=== PATIENT | female | born 1945 | race Two or more races ===

== ENCOUNTER 2017-12-01 08:09 | Outpatient (CLI) | payer OTHER | END 2017-12-01 09:47 | disposition home or self-care (01) | LOC: RAD 08:09 | DX: R06.09 Other forms of dyspnea (principal) ==

== ENCOUNTER 2017-12-24 09:49 | Emergency (ER) | payer OTHER ==
[~2017-12-24] VITALS: Ht 165.1 cm; Wt 77.1 kg
[2017-12-24] MEDS ORDERED: LIPITOR20 MG (10:21)
[2017-12-24] MEDS ORDERED: TOPROL XL50 M1 (10:21)
[2017-12-24] MEDS ORDERED: OMEGA 3 500 SO1 EACH (10:22)
[2017-12-24] MEDS ORDERED: DIOVAN40 MG (10:22)
[2017-12-24] MEDS ORDERED: LITHIUM CARBON300 MG (10:22)
== END 2017-12-24 15:40 | disposition home or self-care (01) ==
LOC: ER 09:49
DX: K52.89 Other specified noninfective gastroenteritis and colitis (principal)

== ENCOUNTER → 2018-01-01 08:30 | Outpatient (CLI) | payer OTHER ==
[~2018-01-01 08:30] MED LIST: DIOVAN40 MG; LIPITOR20 MG; LITHIUM CARBON300 MG; OMEGA 3 500 SO1 EACH; TOPROL XL50 M1
== END | disposition home or self-care (01) ==
LOC: LAB 08:30
DX: K52.1 Toxic gastroenteritis and colitis (principal)

== ENCOUNTER → 2018-01-02 | Emergency (ER) | payer OTHER ==
[~2018-01-02] VITALS: Ht 165.1 cm; Wt 76.2 kg
== END | disposition left against medical advice (07) ==
LOC: ER 17:52
DX: Z53.20 Procedure and treatment not carried out because of patient's decision for unspecified reasons (principal)

== ENCOUNTER 2018-03-04 12:07 | Emergency (ER) | payer OTHER ==
[~2018-03-04] VITALS: Ht 165.1 cm; Wt 76.2 kg
== END 2018-03-04 15:00 | disposition home or self-care (01) ==
LOC: ER 12:07
DX: M43.6 Torticollis (principal)

== ENCOUNTER 2018-05-01 08:03 | Emergency (ER) | payer OTHER ==
[~2018-05-01] VITALS: Ht 165.1 cm; Wt 76.2 kg
[2018-05-01] MEDS ORDERED: WELLBUTRIN XL300 MG PO (08:15)
== END 2018-05-01 11:42 | disposition home or self-care (01) ==
LOC: ER 08:03
DX: S50.12XA Contusion of left forearm, initial encounter (principal); S80.02XA Contusion of left knee, initial encounter; S80.01XA Contusion of right knee, initial encounter; W18.39XA Other fall on same level, initial encounter; Y93.89 Activity, other specified; Y92.89 Other specified places as the place of occurrence of the external cause; Y99.8 Other external cause status

== ENCOUNTER 2018-05-20 08:42 | Outpatient (CLI) | payer OTHER ==
[~2018-05-20 08:42] MED LIST changes: +WELLBUTRIN XL300 MG PO
== END 2018-05-20 08:49 | disposition home or self-care (01) ==
LOC: SONOGRAMA 08:42
DX: M77.12 Lateral epicondylitis, left elbow (principal)

== ENCOUNTER 2018-05-21 08:19 | Outpatient (CLI) | payer OTHER | END 2018-05-21 08:28 | disposition home or self-care (01) | LOC: TOM 08:19 | DX: S50.02XA Contusion of left elbow, initial encounter (principal) ==

== ENCOUNTER 2018-06-23 13:47 | Outpatient (CLI) | payer OTHER | END 2018-06-23 17:00 | disposition home or self-care (01) | LOC: MRI 13:47 | DX: M54.12 Radiculopathy, cervical region (principal); R26.2 Difficulty in walking, not elsewhere classified | CPT/HCPCS: 72141 ==

== ENCOUNTER 2018-10-29 10:49 | Emergency (ER) | payer OTHER ==
[~2018-10-29] VITALS: Ht 165.1 cm; Wt 74.8 kg
== END 2018-10-29 20:09 | disposition home or self-care (01) ==
LOC: ER 10:49 → CPU-OBS 12:59 → ER 12:59
DX: R07.89 Other chest pain (principal)

== ENCOUNTER → 2018-11-16 | Outpatient (CLI) | payer OTHER | END | disposition home or self-care (01) | LOC: NUCLEAR 08:40 | DX: M54.5 Low back pain (principal); E03.9 Hypothyroidism, unspecified; E78.9 Disorder of lipoprotein metabolism, unspecified; E66.8 Other obesity; I11.9 Hypertensive heart disease without heart failure; Z68.27 Body mass index [BMI] 27.0-27.9, adult ==

== ENCOUNTER 2018-11-17 11:36 | Outpatient (CLI) | payer OTHER | END 2018-11-17 17:00 | disposition home or self-care (01) | LOC: MRI 11:36 | DX: M70.62 Trochanteric bursitis, left hip (principal); M76.12 Psoas tendinitis, left hip; R26.2 Difficulty in walking, not elsewhere classified | CPT/HCPCS: 73723; A9575; 73722 ==

== ENCOUNTER → 2019-05-18 | Emergency (ER) | payer OTHER ==
[~2019-05-18] VITALS: Ht 165.1 cm; Wt 75.3 kg
== END | disposition left against medical advice (07) ==
LOC: ER 10:19
DX: Z53.20 Procedure and treatment not carried out because of patient's decision for unspecified reasons (principal)

== ENCOUNTER 2019-07-24 16:47 | Emergency (ER) | payer OTHER ==
[~2019-07-24] VITALS: Ht 165.1 cm; Wt 68.0 kg
[~2019-07-24 16:47] MED LIST changes: +AMOX1TAB5 PO; +ANTIVERT25 M1 PO; +KLONOPIN0.5 MG/TAB; +LIPITOR80 MG; +MOTRIN600 MG PO; +PEPCID40 MG PO; +WELLBUTRIN100 MG
[2019-07-26] MEDS ORDERED: KAPSPARGO SPRI100 MG PO (08:16)
[2019-07-26] MEDS ORDERED: BUPROPION XL150 MG PO (08:16)
[2019-07-26] MEDS ORDERED: CHILDREN'S ASPI81 MG PO (08:17)
[2019-07-26] MEDS ORDERED: FENOFIBRIC ACID35 MG PO (08:18)
== END 2019-07-25 00:13 | disposition home or self-care (01) ==
LOC: ER 16:47
DX: G45.8 Other transient cerebral ischemic attacks and related syndromes (principal)

== ENCOUNTER 2019-07-26 07:55 | Inpatient (IN) | payer OTHER ==
[~2019-07-26] VITALS: Ht 165.1 cm; Wt 70.3 kg
[~2019-07-26 07:55] MED LIST changes: -AMOX1TAB5 PO; -ANTIVERT25 M1 PO; -KLONOPIN0.5 MG/TAB; -LIPITOR80 MG; -MOTRIN600 MG PO; -PEPCID40 MG PO; -WELLBUTRIN100 MG
[2019-07-26] MEDS ORDERED: KAPSPARGO SPRI100 MG PO (08:16)
[2019-07-26] MEDS ORDERED: BUPROPION XL150 MG PO (08:16)
[2019-07-26] MEDS ORDERED: CHILDREN'S ASPI81 MG PO (08:17)
[2019-07-26] MEDS ORDERED: FENOFIBRIC ACID35 MG PO (08:18)
== END 2019-07-26 18:03 | disposition left against medical advice (07) | DRG 69 ==
LOC: ER 07:55 → MEDJ 14:27 → SEC-K 17:01
PROVIDERS: ADMIT Internal Medicine
PROC: B030ZZZ Magnetic Resonance Imaging (MRI) of Brain (ICD-10-PCS; principal; 2019-07-26)
PROC: B345ZZZ Ultrasonography of Bilateral Common Carotid Arteries (ICD-10-PCS; 2019-07-26)
DX: I67.82 Cerebral ischemia (principal); G45.8 Other transient cerebral ischemic attacks and related syndromes; I10 Essential (primary) hypertension; M43.6 Torticollis
CPT/HCPCS: 70551

== ENCOUNTER → 2019-07-27 | Emergency (ER) | payer OTHER ==
[~2019-07-27] VITALS: Ht 165.1 cm; Wt 70.3 kg
[~2019-07-27] MED LIST changes: +AMOX1TAB5 PO; +ANTIVERT25 M1 PO; +BUPROPION XL150 MG PO; +CHILDREN'S ASPI81 MG PO; +FENOFIBRIC ACID35 MG PO; +KAPSPARGO SPRI100 MG PO; +KLONOPIN0.5 MG/TAB; +LIPITOR80 MG; +MOTRIN600 MG PO; +PEPCID40 MG PO; +WELLBUTRIN100 MG
== END | disposition left against medical advice (07) ==
LOC: ER 08:21
DX: Z53.20 Procedure and treatment not carried out because of patient's decision for unspecified reasons (principal)

== ENCOUNTER 2019-07-28 08:58 | Outpatient (CLI) | payer OTHER | END 2019-07-28 09:22 | disposition home or self-care (01) | LOC: NUCLEAR 08:58 | DX: R93.1 Abnormal findings on diagnostic imaging of heart and coronary circulation (principal); R94.31 Abnormal electrocardiogram [ECG] [EKG] ==

== ENCOUNTER 2019-07-29 08:49 | Emergency (ER) | payer OTHER ==
[~2019-07-29] VITALS: Ht 165.1 cm; Wt 70.3 kg
== END 2019-07-29 12:54 | disposition home or self-care (01) ==
LOC: ER 08:49
DX: R53.81 Other malaise (principal)

== ENCOUNTER 2019-08-26 09:04 | Emergency (ER) | payer OTHER ==
[~2019-08-26] VITALS: Ht 165.1 cm; Wt 74.8 kg
[2019-08-26] MEDS ORDERED: ZOLOFT25 MG PO (09:17)
== END 2019-08-26 13:19 | disposition home or self-care (01) ==
LOC: ER 09:04
DX: R53.81 Other malaise (principal); R53.1 Weakness; Z77.21 Contact with and (suspected) exposure to potentially hazardous body fluids

== ENCOUNTER 2019-10-11 22:25 | Emergency (ER) | payer OTHER ==
[~2019-10-11] VITALS: Ht 167.6 cm; Wt 74.8 kg
[~2019-10-11 22:25] MED LIST changes: +ZOLOFT25 MG PO
[2019-10-12] MEDS ORDERED: MECLIZINE HCL25 MG PO (07:05)
[2019-10-12] MEDS ORDERED: ORPHENADRINE C100 MG PO (07:05)
== END 2019-10-12 08:28 | disposition home or self-care (01) ==
LOC: ER 22:25
DX: R42 Dizziness and giddiness (principal)

== ENCOUNTER 2019-10-28 10:27 | Outpatient (CLI) | payer OTHER ==
[~2019-10-28 10:27] MED LIST changes: +MECLIZINE HCL25 MG PO; +ORPHENADRINE C100 MG PO
== END 2019-10-28 10:33 | disposition home or self-care (01) ==
LOC: NUCLEAR 10:27
DX: I63.30 Cerebral infarction due to thrombosis of unspecified cerebral artery (principal); R94.31 Abnormal electrocardiogram [ECG] [EKG]

== ENCOUNTER 2019-11-02 09:49 | Outpatient (CLI) | payer OTHER | END 2019-11-02 14:13 | disposition home or self-care (01) | LOC: NUCLEAR 09:49 | PROVIDERS: ATTEND Psychiatry & Neurology Clinical Neurophysiology | DX: I63.30 Cerebral infarction due to thrombosis of unspecified cerebral artery (principal) ==

== ENCOUNTER 2020-07-10 12:20 | Outpatient (CLI) | payer OTHER | END 2020-07-10 12:39 | disposition home or self-care (01) | LOC: MRI 12:20 | PROVIDERS: ATTEND Psychiatry & Neurology Clinical Neurophysiology | DX: I67.82 Cerebral ischemia (principal); G93.89 Other specified disorders of brain | CPT/HCPCS: 70551 ==

== ENCOUNTER 2020-08-07 14:30 | Outpatient (CLI) | payer OTHER | END 2020-08-07 14:34 | disposition home or self-care (01) | LOC: LAB 14:30 | PROVIDERS: ATTEND Urology | DX: N30.00 Acute cystitis without hematuria (principal); B96.29 Other Escherichia coli [E. coli] as the cause of diseases classified elsewhere ==

== ENCOUNTER → 2020-08-11 | Outpatient (CLI) | payer OTHER | END | disposition home or self-care (01) | LOC: RAD 09:08 | PROVIDERS: ATTEND Urology | DX: N30.00 Acute cystitis without hematuria (principal) ==

== ENCOUNTER 2020-08-29 14:10 | Outpatient (CLI) | payer OTHER | END 2020-08-29 14:18 | disposition home or self-care (01) | LOC: TOM 14:10 | PROVIDERS: ATTEND Psychiatry & Neurology Clinical Neurophysiology | DX: S00.83XA Contusion of other part of head, initial encounter (principal) ==